=== PATIENT | female | born 1965 ===

== ENCOUNTER 2020-09-21 07:32 | Day surgery (SDC) | payer OTHER | END 2020-09-21 12:00 | disposition home or self-care (01) | LOC: AMB-ENDOS 07:32 | PROVIDERS: ATTEND Surgery | DX: K62.89 Other specified diseases of anus and rectum (principal); Z20.822 Contact with and (suspected) exposure to COVID-19; Z12.11 Encounter for screening for malignant neoplasm of colon ==

== ENCOUNTER 2023-04-07 08:00 | Inpatient (IN) | payer OTHER ==
[2023-04-07] MEDS ORDERED: ROSUVASTATIN 5MG (10:00)
[2023-04-07 11:22] LABS: HEMATOCRIT 42.5 % (36.0-45.00); HEMOGLOBIN 14.4 g/dL (12.0-15.00); MEAN CELL VOLUME 88.9 fL (80.00-100.00); MEAN CORPUSCULAR HEMOGLOBIN 30.1 pg (27.00-32.0); MEAN CORPUSCULAR HGB CONC 33.8 g/dl (32.0-36.0); PLATELET COUNT 185 K/uL (150-450); RED BLOOD COUNT 4.78 M/uL (4.00-6.00); RED CELL DISTRIBUTION WIDTH 14.7 % (11.5-14.5)
[2023-04-07 11:32] LABS: URINE APPEARANCE Clear; URINE BILIRRUBIN Negative (NEGATIVE); URINE BLOOD Small; URINE COLOR Yellow; URINE GLUCOSE Negative (NEGATIVE); URINE LEUKOCYTE Small; URINE NITRATE Negative; URINE PROTEIN Negative (NEGATIVE); URINE UROBILINOGEN 0.2 E.U./dl
[2023-04-07 11:38] LABS: URINE BACTERIA 65.5 uL (0.0-1933); URINE EPITHELIAL CELLS 7.5 uL (0.0-38.8); URINE RBC 12.5 uL (0.0-20.8); URINE WBC 13.8 uL (0.0-23.2)
[2023-04-07 11:53] LABS: INR 1.02; PROTHROMBIN TIME 10.7 SECONDS (9.0-11.5)
[2023-04-07 12:15] LABS: ALBUMIN 3.8 gm/dL (3.4-5.0); BILIRUBIN TOTAL 0.55 mg/dL (0.3-1.2); CALCIUM 9.8 mg/dL (8.5-10.1); CREATININE SERUM 0.65 mg/dL (0.55-1.02); GFR 94.29; GLOBULINA 3.5 G/DL (2.4-3.5); POTASSIUM 4.31 mEq/L (3.5-5.1); TOTAL PROTEIN 7.3 gm/dL (6.4-8.2); TSH 1.42 uIU/mL (0.358-3.74)
[2023-04-10] MEDS ORDERED: CLINDAMYCIN PHOSPHATE 150 MG/ML (900mg) IV ONE (07:00)
[2023-04-10] MEDS ORDERED: GENTAMICIN SULFATE 40 MG/ML VIAL IV ONE (07:00)
[2023-04-10] MEDS ORDERED: POVIDONE-IODINE 118 ML BOTT TOP ONE ×2 (12:17→14:00)
[2023-04-10] MEDS ORDERED: CLINDAMYCIN PHOSPHATE 150 MG/ML (900mg) ONE (12:29)
[2023-04-10] MEDS ORDERED: GENTAMICIN SULFATE 40 MG/ML VIAL ONE (12:30)
[2023-04-10] MEDS ORDERED: ROSUVASTATIN CAL5 MG (16:28)
[2023-04-10] MEDS ORDERED: RINGERS SOLUTION,LACTATED 1,000 ML IV SCH (16:45)
[2023-04-10] MEDS ORDERED: OxyCODONE HCL/APAP UD (PERCOCET) PO PRN ×2 (16:45)
[2023-04-10] MEDS ORDERED: DOCUSATE SODIUM 100MG CAP PO SCH (17:00)
[2023-04-10] MEDS ORDERED: KETOROLAC TROMETHAMINE 30 MG VIAL IV SCH (18:00)
[2023-04-10] MEDS ORDERED: ONDANSETRON HCL 2 MG/ML VIAL ONE (20:35)
[2023-04-10] MEDS ORDERED: ONDANSETRON HCL 2 MG/ML VIAL IV SCH (21:00)
[2023-04-11 06:35] LABS: HEMATOCRIT 33.9 % (36.0-45.00); HEMOGLOBIN 12.1 g/dL (12.0-15.00); MEAN CELL VOLUME 88.5 fL (80.00-100.00); MEAN CORPUSCULAR HEMOGLOBIN 31.7 pg (27.00-32.0); MEAN CORPUSCULAR HGB CONC 35.8 g/dl (32.0-36.0); PLATELET COUNT 155 K/uL (150-450); RED BLOOD COUNT 3.83 M/uL (4.00-6.00); RED CELL DISTRIBUTION WIDTH 14.2 % (11.5-14.5)
[2023-04-11 07:05] LABS: ALBUMIN 2.8 gm/dL (3.4-5.0); BILIRUBIN TOTAL 1.06 mg/dL (0.3-1.2); CALCIUM 8.7 mg/dL (8.5-10.1); CREATININE SERUM 0.78 mg/dL (0.55-1.02); GFR 76.4; GLOBULINA 2.6 G/DL (2.4-3.5); POTASSIUM 3.85 mEq/L (3.5-5.1); TOTAL PROTEIN 5.4 gm/dL (6.4-8.2)
[2023-04-11] MEDS ORDERED: SIMETHICONE 125 MG CAPSULE PO SCH (09:00)
[2023-04-11] MEDS ORDERED: IBUprofen 800 MG TABLET PO SCH (09:00)
[2023-04-11] MEDS ORDERED: SIMETHICONE125 M1 PO (16:05)
[2023-04-11] MEDS ORDERED: OXYC1TAB9 PO (16:05)
[2023-04-11] MEDS ORDERED: IBUPROFEN800 MG PO (16:05)
[2023-04-11] MEDS ORDERED: COLACE100 MG PO (16:05)
== END 2023-04-11 16:24 | disposition home or self-care (01) | DRG 743 ==
LOC: O/R 04-10 06:20 → OB/GYN 04-10 08:00 → O/R 04-10 18:14 → OB/GYN 04-10 18:22
PROVIDERS: ADMIT Student in an Organized Health Care Education/Training Program; ATTEND Student in an Organized Health Care Education/Training Program
PROC: 0UT74ZZ Resection of Bilateral Fallopian Tubes, Percutaneous Endoscopic Approach (ICD-10-PCS; 2023-04-10)
PROC: 0TJB8ZZ Inspection of Bladder, Via Natural or Artificial Opening Endoscopic (ICD-10-PCS; 2023-04-10)
PROC: 0UT94ZZ Resection of Uterus, Percutaneous Endoscopic Approach (ICD-10-PCS; principal; 2023-04-10 17:45)
DX: D25.2 Subserosal leiomyoma of uterus (principal); N84.0 Polyp of corpus uteri; N72 Inflammatory disease of cervix uteri; Z20.822 Contact with and (suspected) exposure to COVID-19